=== PATIENT | female | born 1990 | race Caucasian/White ===

== ENCOUNTER → 2016-12-23 | Outpatient (CLI) | payer OTHER ==
[~2016-12-23] MED LIST: BACTRIM DS TABL1 TA2 PO; NO MEDICATIONS; PREDNISONE PO; PROAIR HFA8.5 GM INH; PYRIDIUM PO; TESSALON200 MG PO
--- NOTE | ~2016-12-23 | CR97 ---
[facility] A Service of [facility] RADIOLOGY TEXT RESULTS PATIENT: SIDDHARTH HOLLY LOCATION: [facility] : 91 UNIT #: [id number] AGE: [address]: Phil Ray III, MD SEX: F ORDER DR: [id number] [place] [id number] [facility]. [place], [place] [address] [id number] O MR#: [id number] Acc #: [id number] NAME: SIDDHARTH HOLLY : 1990 SEX: F STUDY DATE/TIME: 12/23/2016 8:26 UNIT: [facility] ROOM: STUDY DESCRIPTION: CR Esophagram Attending Physician: Phil Ray III, M.D. Ordering Physician: Phil Ray III, M.D. Primary Care Physician: Eli Resendiz M.D. MEDICAL IMAGING REPORT This report is preliminary unless electronic signature is present EXAM Esophagram. INDICATION Preoperative valuation for Lap-Band placement. PROCEDURE The patient swallowed thin barium under fluoroscopy. Total fluoro time 0.4 minutes. 15 images were obtained. COMPARISON None FINDINGS Patient swallows barium without difficulty. No esophageal mass or stricture. No appreciable hiatal hernia. IMPRESSION Negative esophagram. Dictated by... Javad Bradley M.D. THIS IS AN ELECTRONICALLY VERIFIED REPORT Javad Bradley M.D. at 12/25/2016 9:51 PM EED/joe TD: 12/23/2016 17:25 JOB #: [id number] MEDICAL IMAGING REPORT [facility] A Service of [facility] RADIOLOGY TEXT RESULTS PATIENT: SIDDHARTH HOLLY LOCATION: [facility] : 91 UNIT #: [id number] AGE: [address]: Phil Ray III, MD SEX: F ORDER DR: Page 1 of 1 COPY
--- NOTE | ~2016-12-23 | CR63 ---
[facility] A Service of [facility] RADIOLOGY TEXT RESULTS PATIENT: SIDDHARTH HOLLY LOCATION: [facility] : 91 UNIT #: [id number] AGE: [address]: Phil Ray III, MD SEX: F ORDER DR: [id number] [facility] [address] [facility]. [place], [place] [address] [id number] O MR#: [id number] Acc #: [id number] NAME: SIDDHARTH HOLLY : 1990 SEX: F STUDY DATE/TIME: 12/23/2016 7:37 UNIT: [facility] ROOM: STUDY DESCRIPTION: CR Chest 2 View Attending Physician: Phil Ray III, M.D. Ordering Physician: Phil Ray III, M.D. Primary Care Physician: Eli Resendiz M.D. MEDICAL IMAGING REPORT This report is preliminary unless electronic signature is present EXAM Chest PA and lateral, 12/23/2016 HISTORY Morbid obesity, preop laparoscopic gastric banding. FINDINGS PA and lateral examination of the chest upright shows a good expansion of the parenchyma with a normal distribution of the pulmonary vascularity. There is no indication of congestion, effusion, infiltrate, tumor, or nodular density. The pleural reflections and diaphragmatic contours are normal. The cardiac silhouette and mediastinal anatomy is within normal limits. IMPRESSION Normal chest. Dictated by... Omid Cazares M.D. THIS IS AN ELECTRONICALLY VERIFIED REPORT Omid Cazares M.D. at 12/23/2016 10:52 AM Filiberto TD: 12/23/2016 09:57 JOB #: [id number] MEDICAL IMAGING REPORT Page 1 of 1 COPY
--- NOTE | ~2016-12-23 | EKG ---
PATIENT: SIDDHARTH HOLLY UNIT #: [id number] Ventricular Rate: 59 BPM Atrial Rate: 59 BPM P-R Interval: 172 ms QRS Duration: 82 ms Q-T Interval: 404 ms QTC Calculation(Bezet): 399 ms P [place]: 24 degrees Calculated R [place]: 50 degrees Calculated T [place]: 35 degrees Diagnosis Line: Sinus bradycardia with sinus arrhythmia Diagnosis Line: Poor R wave progression questionable lead position Diagnosis Line: or body habitus Otherwise normal ECG No previous Diagnosis Line: ECGs available Diagnosis Line: Confirmed by EZRA URBINA MD ([id number]) on 12/23/2016 Diagnosis Line: 4:42:37 PM INTERPRETING MD: CARLITOS SHELDON
[2016-12-23 09:53] LABS: HEMOGLOBIN 13.4 gm/dL (12.0-16.0); MEAN CELL VOLUME 89.3 FL (83-96); MEAN CORPUSCULAR HEMOGLOBIN 29.2 PG (28-34); MEAN CORPUSCULAR HGB CONC 32.7 g/dL (30-36); MEAN PLATELET VOLUME 9.4 FL (6.5-11.5); RED BLOOD COUNT 4.6 X10e (3.90-5.30); RED CELL DISTRIBUTION WIDTH 13.3 % (11.0-15.5); WHITE BLOOD COUNT 9.1 X10e3 (4.0-10.5)
[2016-12-23 10:32] LABS: ALBUMIN SERUM 3.8 g/dL (3.5-5.0); BILIRUBIN,TOTAL 0.5 mg/dL (0.2-2.0); BUN/CREATININE RATIO 16.66; CREATININE SERUM 0.6 mg/dL (0.6-1.4); GLOM FILT RATE Estimated 126.7 mL/min (>60); POTASSIUM 3.9 mmol/L (3.5-5.1); PROTEIN TOTAL SERUM 6.3 g/dL (6.0-8.3)
== END | disposition home or self-care (01) ==
LOC: CRAD 07:19
PROVIDERS: Surgery
DX: Z01.818 Encounter for other preprocedural examination (principal)
CPT/HCPCS: 36415; 71020; 74220; 80053; 80061; 84443; 85027; 93005

== ENCOUNTER → 2017-01-04 | Day surgery (SDC) | payer OTHER ==
--- NOTE | ~2017-01-04 | CR7 ---
[facility] A Service of [facility] RADIOLOGY TEXT RESULTS PATIENT: SIDDHARTH HOLLY LOCATION: [facility] : 91 UNIT #: [id number] AGE: [address]: Phil Ray III, MD SEX: F ORDER DR: [id number] [facility] [address]. [place], [place] [address] [id number] O MR#: [id number] Acc #: [id number] NAME: SIDDHARTH HOLLY : 1990 SEX: F STUDY DATE/TIME: 01/04/2017 9:21 UNIT: [facility] ROOM: STUDY DESCRIPTION: CR Abdomen Single AP View Attending Physician: Phil Ray III, M.D. Ordering Physician: Phil Ray III, M.D. Primary Care Physician: Eli Resendiz M.D. MEDICAL IMAGING REPORT This report is preliminary unless electronic signature is present EXAM Abdominal radiograph INDICATIONS Lap-band placement, postop evaluation. PROCEDURE Supine view of the abdomen COMPARISON None. FINDINGS There is a lap band in place positioned approximately 72 degrees to the lower thoracic spine. Visualized portions of the catheter are intact. Previous cholecystectomy. IMPRESSION Expected postop appearance. Dictated by... Javad Bradley M.D. THIS IS AN ELECTRONICALLY VERIFIED REPORT Javad Bradley M.D. at 01/05/2017 6:50 AM EED/reba TD: 01/04/2017 11:51 JOB #: [id number] MEDICAL IMAGING REPORT [facility] A Service of [facility] RADIOLOGY TEXT RESULTS PATIENT: SIDDHARTH HOLLY LOCATION: [facility] : [birth year] UNIT #: [id number] AGE: [address]: Phil Ray III, MD SEX: F ORDER DR: Page 1 of 1 COPY
--- NOTE | ~2017-01-04 | OR ---
Unit #: [id number] #: [id number] Patient: SIDDHARTH HOLLY [id number] [facility] [address]. [place], [place] [address] [id number] O MR#: [id number] NAME: SIDDHARTH HOLLY ROOM: Date of Procedure: 01/04/2017 Admission Date: 01/04/2017 Surgeon: Phil Ray III, M.D. : 1990 Attending Physician: Phil Ray III, M.D. Primary Care Physician: Eli Resendiz M.D. OPERATIVE REPORT PREOPERATIVE DIAGNOSIS Chronic morbid obesity. POSTOPERATIVE DIAGNOSIS Chronic morbid obesity. SECONDARY DIAGNOSIS Anterior paraesophageal hernia. PROCEDURE PERFORMED Laparoscopic adjustable gastric banding (AP standard with regular port) and laparoscopic paraesophageal hernia repair. LASER ENGRAVER Ivan Murry M.D. SPECIMENS None. COMPLICATIONS None apparent. ESTIMATED BLOOD LOSS Minimal. INDICATIONS FOR PROCEDURE This is a 26-year-old lady, who has chronic morbid obesity with a BMI of 51. She has been through the bariatric program at [facility] and understands risks and benefits of the procedure. DESCRIPTION OF PROCEDURE After consent was obtained, including the risks and benefits of slippage, erosion, port dysfunction, and possible failure of weight loss due to noncompliance, the patient was taken to the operating room and placed in the supine position. General anesthetic was administered and the abdomen was prepped and draped in standard surgical fashion. I began by making a 2 cm incision just above and to the left of the umbilicus. I used a Visiport to enter the peritoneal cavity without any difficulty. C02 pneumoperitoneum was then established. Next, I placed a 5 mm port in the right upper quadrant, a 5 mm Angella liver retractor in the subxiphoid region to provide exposure of the gastroesophageal Unit #: [id number] #: [id number] Patient: SIDDHARTH HOLLY junction. Next, a 10 mm port was placed in the left upper quadrant and a 5 mm port was placed in the left lateral subcostal region. I began by performing an examination of the GE junction to evaluate for a hiatal hernia. We then scored the peritoneal attachments overlying the angle of His. I then opened up the clear space in the gastrohepatic ligament, and then using 2 blunt graspers, I identified the small fat pad crossing over the right crura. I swept the fat anterior to the crura off the crura and using the pars flaccida, I created a retrogastric tunnel where the blunt grasper exited at the angle of His. Once I had made this tunnel safely, I then inserted an Allergan AP band into the abdominal cavity. This adjustable gastric band was then place around the upper part of the stomach and fastened and buckled anteriorly. We then tacked the lateral fundus over the band to the proximal pouch with 2 interrupted 0 Ethibond sutures. I then used a third stitch to imbricate the excess anterior stomach by going from the lesser curvature up towards where the last stitch was placed. We then had excellent hemostasis. I removed the Angella liver retractor. We then removed the port tubing through the initial port incision. The rest of the ports were removed, and the pneumoperitoneum was released. I then left a small tail on the tubing. We then attached the port to the excess band tubing. We placed a piece of Prolene mesh along the back side of the port and used a Prolene stitch to anchor this mesh in place. We then trimmed the excess mesh so that just a small footprint of mesh was in place behind the port. I then inserted the tubing back into the abdominal cavity, and we placed the port into a small pocket that was made just inferior to where our initial port incision was made. The mesh was in direct contact with the fascia, and this will scar in place to hold the port in place. We then injected all the port sites with 0.25% plain Marcaine, and I reapproximated the skin edges with interrupted 4-0 Vicryl subcuticular sutures. Steri-strips were then applied. The patient tolerated the procedure without any problems and returned to the recovery room in stable condition. ADDENDUM After exposure of the GE junction, the patient was noted to have a small to medium size anterior paraesophageal hernia. I scored the phrenoesophageal ligament, reduced the hernia defect and after identifying both the right and left crura, I reapproximated the defect with an interrupted 0 Ethibond [id number] suture. I then proceeded with the case as listed above. Dictated by... Phil Ray III, M.D. VCL/kelly TD: 01/05/2017 07:58 JOB #: [id number] Unit #: [id number] #: [id number] Patient: SIDDHARTH HOLLY OPERATIVE REPORT Page 1 of 1 X Phil Ray III, MD X PROCEDURE OPERATIVE NOTE
== END | disposition home or self-care (01) ==
LOC: CSUR 05:43
DX: E66.01 Morbid (severe) obesity due to excess calories (principal); K44.9 Diaphragmatic hernia without obstruction or gangrene; J45.909 Unspecified asthma, uncomplicated; Z90.49 Acquired absence of other specified parts of digestive tract; Z79.899 Other long term (current) drug therapy; Z87.891 Personal history of nicotine dependence; Z68.43 Body mass index [BMI] 50.0-59.9, adult
CPT/HCPCS: 74000; 84703; C1781; J0330; J0690; J1650; J1885; J2250; J2405; J3010